=== PATIENT | female | born 1965 | race Caucasian/White ===

== ENCOUNTER 2016-12-17 22:52 | Inpatient (IN) | payer OTHER ==
[~2016-12-17] VITALS: Ht 149.9 cm; Wt 57.0 kg
[2016-12-18] VITALS (8 sets, daily range): BP systolic 94–114; BP diastolic 53–64; PULSE 69–82; RESP 14–20; Ht 149.9 cm; Wt 57.0 kg
[2016-12-18] MEDS ORDERED: KETOROLAC 30 MG INJ IV STA (00:25)
[2016-12-18] MEDS ORDERED: LORAZEPAM 2 MG INJ IV ONE (00:30)
--- NOTE | 2016-12-18 00:33 | RADRPT ---
PROCEDURE: XR Chest. CLINICAL INDICATION: Chest pain. TECHNIQUE: Portable AP upright view of the chest was obtained. COMPARISON: None. FINDINGS: The cardiomediastinal silhouette is within normal limits. The lungs are clear. There is no evidenc e for pleural effusion, pneumothorax or pulmonary vascular congestion. The osseous structures are i ntact with no evidence for acute abnormality. RPTAT:HJJR IMPRESSION: No evidence for acute intrathoracic pathology. Physician Murali Date Time Electronically viewed and signed by Physician Murali on 12/18/2016 00:33 JR/
[2016-12-18 00:35] LABS: CHLORIDE 108 mmol/L (97-110); INR 0.88; POTASSIUM 4.9 mmol/L (3.5-5.1); PROTIME 11.9 Sec (12.2-14.2); PT RATIO 0.9; SODIUM 144 mmol/L (135-144)
[2016-12-18 00:36] LABS: PARTIAL THROMBOPLASTIN TIME 28.1 Sec (25.0-35.0)
[2016-12-18 00:37] LABS: ALBUMIN/GLOBULIN RATIO 1.29; ANION GAP 16 (8-16); ASPARTATE AMINO TRANSFERASE 20 IU/L (15-46); CARBON DIOXIDE 25 mmol/L (21-31); CREATININE 0.94 mg/dl (0.44-1.00); TOTAL PROTEIN 7.1 g/dl (6.1-8.1)
[2016-12-18 00:38] LABS: ALANINE AMINOTRANSFERASE 21 IU/L (13-69); ALKALINE PHOSPHATASE 98 IU/L (42-121); BLOOD UREA NITROGEN 14 mg/dl (7-20); CALCIUM 9.4 mg/dl (8.4-10.2); GLUCOSE 94 mg/dl (70-220)
[2016-12-18 00:45] LABS: B-TYPE NATRIURETIC PEPTIDE 26 PG/ML (0-125)
[2016-12-18 01:22] LABS: TROPONIN-I < 0.012 ng/ml (0.00-0.12)
[2016-12-18] MEDS ORDERED: morphine 4 MG/ML VIAL IV STA ×2 (01:24→04:00)
[2016-12-18] MEDS ORDERED: DIPHENHYDRAMINE 50 MG INJ ONE (01:36)
[2016-12-18 01:41] LABS: HEMATOCRIT 39.6 % (37.0-47.0); HEMOGLOBIN 13.1 g/dl (12.0-16.0); MEAN CORPUSCULAR VOLUME 89.8 fl (82.0-101.0); RED BLOOD COUNT 4.41 10^6/ul (4.20-5.40); WHITE BLOOD COUNT 8.3 10^3/ul (4.8-10.8)
[2016-12-18 01:42] LABS: BASOPHILS % 0.6 % (0.0-2.0); EOSINOPHILS % 4.1 % (0.0-7.0); LYMPHOCYTES % 43.7 % (15.0-51.0); MEAN CORPUSCULAR HEMOGLOBIN 29.7 pg (29.0-33.0); MEAN CORPUSCULAR HGB CONC 33.1 g/dl (32.0-37.0); MEAN PLATELET VOLUME 10.8 fl (7.4-10.4); NEUTROPHILS % 41.2 % (39.0-77.0); PLATELET COUNT 510 10^3/UL (140-440); RED CELL DISTRIBUTION WIDTH 15.6 % (11.5-14.5)
[2016-12-18 01:43] LABS: BASOPHIL # 0.1 10^3/ul (0.0-0.1); EOSINOPHILS # 0.3 10^3/ul (0.0-0.5); LYMPHOCYTES # 3.6 10^3/ul (0.8-2.9); MONOCYTE # 0.8 10^3/ul (0.3-0.9); NEUTROPHIL # 3.4 10^3/ul (1.6-7.5)
[2016-12-18] MEDS ORDERED: DIPHENHYDRAMINE 50 MG INJ IV ONE ×2 (02:00→04:30)
[2016-12-18] MEDS ORDERED: ONDANSETRON 4 MG INJ IV STA (04:00)
--- NOTE | 2016-12-18 05:02 | ERA ---
ER Documentation Chief Complaint Date/Time DATE: 12/18/16 TIME: 05:01 Chief Complaint Pt reports CP x 5 days after father passing HPI This is a 51-year-old female who says she has been for the past 5 days. She said it was triggered by her father's passing intermittently emotional. Patient said she took benzodiazepines at home with no relief. She points of substernal chest pain, nonradiating nonexertional positional no exacerbating or remitting factors. No nausea no vomiting fevers or chills. No other current complaints. ROS All systems reviewed and are negative except as per history of present illness. Allergies Allergies: Coded Allergies: Penicillins (Verified Allergy, Unknown, 12/18/16) ketorolac (Verified Allergy, Unknown, 12/18/16) PMhx/Soc Hx Alcohol Use: Yes Hx Substance Use: No Hx Tobacco Use: Yes Smoking Status: Former smoker Physical Exam Vitals Vital Signs Date Time Temp Pulse Resp B/P Pulse Ox O2 Delivery O2 Flow Rate FiO2 12/18/16 04:00 83 19 102/72 95 Room Air 12/18/16 01:30 85 16 106/76 97 Room Air 12/17/16 23:05 98.1 99 18 140/70 100 Physical Exam Const: [] Head: Atraumatic Eyes: Normal Conjunctiva ENT: Normal External Ears, Nose and Mouth. Neck: Full range of motion..~ No meningismus. Resp: Clear to auscultation bilaterally Cardio: Regular rate and rhythm, no murmurs Abd: Soft, non tender, non distended. Normal bowel sounds Skin: No petechiae or rashes Back: No midline or flank tenderness Ext: No cyanosis, or edema Neur: Awake and alert Psych: Normal Mood and Affect Result Diagram: 12/17/16612/17/166 Results 24 hrs Laboratory Tests Test 12/17/16 00:07 Activated Partial Thromboplast Time 28.1Sec Alanine Aminotransferase (ALT/SGPT) 21IU/L Albumin 4.0g/dl Albumin/Globulin Ratio 1.29 Alkaline Phosphatase 98IU/L Anion Gap 16 Aspartate Amino Transf (AST/SGOT) 20IU/L B-Type Natriuretic Peptide 26PG/ML Basophils # 0.110^3/ul Basophils % 0.6% Blood Urea Nitrogen 14mg/dl Calcium Level 9.4mg/dl Carbon Dioxide Level 25mmol/L Chloride Level 108mmol/L Creatinine 0.94mg/dl Direct Bilirubin 0.00mg/dl Eosinophils # 0.310^3/ul Eosinophils % 4.1% Globulin 3.10g/dl Glucose Level 94mg/dl Hematocrit 39.6% Hemoglobin 13.1g/dl INR International Normalized Ratio 0.88 Indirect Bilirubin 0.0mg/dl Lymphocytes # 3.610^3/ul Lymphocytes % 43.7% Mean Corpuscular Hemoglobin 29.7pg Mean Corpuscular Hemoglobin Concent 33.1g/dl Mean Corpuscular Volume 89.8fl Mean Platelet Volume 10.8fl Monocytes # 0.810^3/ul Monocytes % 10.0% Neutrophils # 3.410^3/ul Neutrophils % 41.2% Nucleated Red Blood Cells # 0.010^3/ul Nucleated Red Blood Cells % 0.0/100WBC Platelet Count 13077^3/UL Potassium Level 4.9mmol/L Prothrombin Time 11.9Sec Prothrombin Time Ratio 0.9 Red Blood Count 4.4110^6/ul Red Cell Distribution Width 15.6% Sodium Level 144mmol/L Total Bilirubin 0.0mg/dl Total Protein 7.1g/dl Troponin I < 0.012ng/ml White Blood Count 8.310^3/ul Current Medications Medications (Trade) Dose Ordered Sig/Chanell Route PRN Reason Start Time Stop Time Status Last Admin Dose Admin Lorazepam (Ativan) 1 mg ONCE ONCE IV 12/18/16 00:30 12/18/16 00:31 DC 12/18/16 00:16 Ketorolac Tromethamine (Toradol) 30 mg ONCE STAT IV 12/18/16 00:25 12/18/16 00:26 DC Morphine Sulfate (morphine) 4 mg ONCE STAT IV 12/18/16 01:24 12/18/16 01:25 DC 12/18/16 01:28 Diphenhydramine HCl (Benadryl) 50 mg STK-MED ONCE .ROUTE 12/18/16 01:36 12/18/16 01:37 DC Diphenhydramine HCl (Benadryl) 50 mg ONCE ONCE IV 12/18/16 02:00 12/18/16 02:01 DC 12/18/16 02:00 Morphine Sulfate (morphine) 4 mg ONCE STAT IV 12/18/16 04:00 12/18/16 04:02 DC 12/18/16 04:04 Ondansetron HCl (Zofran Inj) 4 mg ONCE STAT IV 12/18/16 04:00 12/18/16 04:02 DC 12/18/16 04:04 Diphenhydramine HCl (Benadryl) 50 mg ONCE ONCE IV 12/18/16 04:30 12/18/16 04:31 DC 12/18/16 04:13 Procedures/MDM EKG: Rate/Rhythm: Normal Sinus Rhythm QRS, ST, T-waves: No changes consistent w/ acute ischemia Impression: No evidence of ischemia or arrhythmia Chest X-ray 1V Interpreted by me: Soft Tissue: No acute abnormalities Bones: No acute abnormalities Mediastinum/Cardiac Silhouette/Lungs: No acute abnormalities Patient's symptoms are concerning for cardiac cause will require inpatient workup and continuous monitoring. Further w/u for ischemia, arrhythmia, PE or dissection will be deferred to the inpatient team. Accepting Care Team: Current data and ongoing care discussed. Time: 3 AM Primary Provider: Hospitalist Consulting: [XOXOXO] Outstanding Data: none Departure Diagnosis: Primary Impression: Chest pain Qualified Code: R07.9 - Chest pain, unspecified type Condition: Serious LISA LEIVA Dec 18, 2016 05:02
[2016-12-18] MEDS ORDERED: ACETAMINOPHEN 325 MG TAB PO PRN (08:00)
[2016-12-18] MEDS ORDERED: ALBUTEROL/IPRATROPIUM (NEB) 3 ML AMP HHN PRN (08:00)
[2016-12-18] MEDS ORDERED: NACL 0.9% 3 ML SYG IV SCH (08:00)
[2016-12-18] MEDS ORDERED: NITROGLYCERIN (SL) 0.4 MG TAB SL PRN (08:00)
[2016-12-18 09:44] LABS: BASOPHIL # 0.2 10^3/ul (0.0-0.1); BASOPHILS % 2.4 % (0.0-2.0); EOSINOPHILS # 0.3 10^3/ul (0.0-0.5); EOSINOPHILS % 4.5 % (0.0-7.0); HEMATOCRIT 38.4 % (37.0-47.0); HEMOGLOBIN 12.7 g/dl (12.0-16.0); LYMPHOCYTES # 3.8 10^3/ul (0.8-2.9); LYMPHOCYTES % 50.7 % (15.0-51.0); MEAN CORPUSCULAR HEMOGLOBIN 29.8 pg (29.0-33.0); MEAN CORPUSCULAR HGB CONC 33.2 g/dl (32.0-37.0); MEAN CORPUSCULAR VOLUME 89.8 fl (82.0-101.0); MEAN PLATELET VOLUME 9.2 fl (7.4-10.4); MONOCYTE # 0.7 10^3/ul (0.3-0.9); MONOCYTES % 9.3 % (0.0-11.0); NEUTROPHIL # 2.5 10^3/ul (1.6-7.5); NEUTROPHILS % 33.1 % (39.0-77.0); PLATELET COUNT 441 10^3/UL (140-440); RED BLOOD COUNT 4.27 10^6/ul (4.20-5.40); RED CELL DISTRIBUTION WIDTH 15.9 % (11.5-14.5); UNCORRECTED WBC 7.4 10^3/ul (4.8-10.8); WHITE BLOOD COUNT 7.4 10^3/ul (4.8-10.8)
[2016-12-18 09:52] LABS: CONDITION 1; LH ANALYZER COMMENTS 1
[2016-12-18] MEDS: ASPIRIN 81 MG TAB PO SCH (09:53)
[2016-12-18 09:55] LABS: ALBUMIN 3.7 g/dl (3.3-4.9)
[2016-12-18 09:56] LABS: POTASSIUM 4.9 mmol/L (3.5-5.1)
[2016-12-18 09:58] LABS: ALBUMIN/GLOBULIN RATIO 1.15; BILIRUBIN,INDIRECT 0.2 mg/dl (0-1.1); BILIRUBIN,TOTAL 0.2 mg/dl (0.2-1.3); CREATININE 0.75 mg/dl (0.44-1.00); TOTAL PROTEIN 6.9 g/dl (6.1-8.1)
[2016-12-18 09:59] LABS: CALCIUM 9.3 mg/dl (8.4-10.2); MAGNESIUM 1.9 mg/dl (1.7-2.5)
[2016-12-18] MEDS: ENOXAPARIN 40 MG/0.4 ML SYG SC SCH (10:03)
[2016-12-18] MEDS: morphine 2 MG INJ IV PRN ×3 (10:07→23:33)
[2016-12-18] MEDS: DIPHENHYDRAMINE 50 MG INJ IV PRN ×3 (10:16→23:33)
[2016-12-18 10:29] LABS: THYROID STIMULATING HORMONE 2.37 MIU/L (0.465-4.680)
[2016-12-18] MEDS: LORAZEPAM 2 MG INJ IV PRN ×2 (13:25→19:37)
--- NOTE | 2016-12-18 15:13 | RADRPT ---
Echocardiogram Report Patient Name: BRIAN FERRO Gender: Female Date: 1965 Study Date: 18-Dec-2016 [employer] Superintendent: [facility] Location: 5552 Ref. Physician: LISA CARDENAS Quality: Adequate Procedures: Transthoracic echocardiogram with complete 2D, M-Mode, and doppler examination. Indications: Chest Pain. 2D/M Mode Doppler Measurement Value Normal Ranges Measurement Value Normal Ranges LVIDd 2D 3.8 3.5 - 5.6 cm AV Mean [place] 1.0 m/sec LVIDs 2D 2.8 2.1 - 4.1 cm AV Mean PG 4.8 mmHg LVPWd 2D 1.3 0.6 - 1.1 cm AV Peak [place] 1.5 m/sec IVSd 2D 1.3 0.6 - 1.1 cm AV Peak PG 9.3 mmHg AoR Diam 2D 2.0 2.0 - 3.7 cm AV VTI 32.9 cm EF 2D 52.0 50.0 - 65.0 % LVOT Peak [place] 1.1 m/sec LA Dimen 2D 3.8 2.3 - 4.0 cm MV E Peak [place] 0.9 m/sec IVC Diam 1.7 1.2 - 2.0 MV A Peak [place] 0.5 m/sec MV E/A 1.6 MV Decel Time 247 msec MV Decel [place] 3 MV E/A 1.6 Findings Left Ventricle: Normal left ventricular systolic function. Normal left ventricular cavity size. Mild concentric left ventricular hypertrophy. Ejection fraction is visually estimated at 65 %. Abnormal Diastolic Function. Right Ventricle: Normal right ventricular size. Normal right ventricular systolic function. Left Atrium: The left atrium is normal in size. Right Atrium: The right atrium is normal in size. Mitral Valve: Mild mitral annular calcification. Trace mitral regurgitation. Aortic Valve: Probable trileaflet aortic valve, although not all leaflets are visualized. Tricuspid Valve: Tricuspid valve not well visualized. There is trace tricuspid regurgitation. Pericardium: There is an anterior echo free space consistent with epicardial fat pad. Aorta: Normal aortic root. IVC: Dilated inferior vena cava with poor inspiratory collapse consistent with elevated right atrial pressures. Conclusions 1.Normal left ventricular systolic function. Normal left ventricular cavity size. Mild concentric left ventricular hypertrophy. Ejection fraction is visually estimated at 65 %. Abnormal Diastolic Function. 2.The left atrium is normal in size. 3.Probable trileaflet aortic valve, although not all leaflets are visualized. 4.Tricuspid valve not well visualized. There is trace tricuspid regurgitation. Electronically Signed By: Barak Sage 18-Dec-2016 15:13:18 -0800 Patient Name: BRIAN FERRO Study Date: 18-Dec-2016 [id number]
[2016-12-18 16:29] LABS: CREATINE KINASE 51 IU/L (23-200)
[2016-12-18 16:40] LABS: CK-MB < 0.22 ng/ml (0.0-2.4)
[2016-12-18 16:49] LABS: TROPONIN-I < 0.012 ng/ml (0.00-0.12)
--- NOTE | 2016-12-18 17:49 | QN ---
Documentation Comment The patient was seen and examined. Labs reviewed. Explained the plan of care to the patient. Called cardiology consult. Case discussed with Dr. Rowell. VICTOR M OWENS NP Dec 18, 2016 17:49
[2016-12-18 17:51] LABS: CREATINE KINASE 49 IU/L (23-200)
[2016-12-18 18:07] LABS: TROPONIN-I < 0.012 ng/ml (0.00-0.12)
[2016-12-18 18:09] LABS: CK-MB < 0.22 ng/ml (0.0-2.4)
--- NOTE | 2016-12-18 18:25 | CONS ---
DATE OF ADMISSION: 12/18/2016 DATE OF CONSULTATION: 12/18/2016 TYPE OF CONSULTATION: Cardiology. REASON FOR CONSULTATION: Chest pain. CHIEF COMPLAINT: Chest pain. HISTORY OF PRESENT ILLNESS: History obtain from the patient's chart, discussion with physician and staff. This is a pleasant 51-year-old female with history of anxiety who apparently has lost her fa ther 4 days ago. The patient's father had been sick. She states that she has constant chest pain a nteriorly. Could not explain exacerbating factor to me. It is not exertional, but she does not wal k and is not very active. PAST MEDICAL HISTORY: History of sciatica. ALLERGIES: REPORTED TO PENICILLIN AND KETOROLAC. SOCIAL HISTORY: The patient smokes 1 to 2 cigarettes a day. FAMILY HISTORY: Patient's father had coronary bypass graft in his 60s. REVIEW OF SYSTEMS: Otherwise negative except for above-mentioned. PHYSICAL EXAMINATION: VITAL SIGNS: Temperature 98, heart rate of 69, blood pressure 102/67, respiration rate of 20, satur ating 98%. HEENT: Normocephalic, atraumatic. Pupils are equal. CARDIOVASCULAR: Regular rate and rhythm. PULMONARY: With no wheezes or rhonchi. GASTROINTESTINAL: Soft, nontender. EXTREMITIES: No edema. NEUROLOGIC: Awake and alert. PSYCHIATRIC: Calm, pleasant. LABORATORY: Sodium 141, potassium 4.9, BUN of 13, creatinine 0.75. Troponin has been negative x2. Echocardiogram was personally reviewed, which shows ejection fraction of about 65%. EKG showed nor mal sinus rhythm with no evidence of ischemia. ASSESSMENT AND PLAN 1. Chest pain syndrome, rule acute coronary syndrome. 2. Anxiety. 3. History of sciatica. 4. Family history of coronary artery disease. RECOMMENDATIONS: Continue with the aspirin for now. Cardiac enzymes have been negative. Lexiscan w ill be done tomorrow to rule out obstructive coronary artery disease. Dictated By: HERNÁN COLLAZO MD AV/KENRICK Conf#: [id number] DID#: [id number] CC: LISA CARDENAS MD;*EndCC*
--- NOTE | 2016-12-18 19:40 | HP ---
DATE OF ADMISSION: 12/18/2016 TIME SEEN: 6 a.m. CHIEF COMPLAINT: Chest pain. HISTORY OF PRESENT ILLNESS: The patient is a 51-year-old female with a history of anxiety and sciat ica who presented to the emergency department. Patient had a chief complaint of chest pain. She st ated her chest pain has been going on for about a week. She does have a history of anxiety and her ____ recently and she said she has been under a lot of emotional distress because of marily t. Her chest pain is located in the mid chest area and ____ with no radiation to her arm, face and back. She reports occasional associated difficulty breathing. Denies nausea, vomiting or ____. Wh en she presented to the ER, her vitals were stable. EKG ____. ____ negative. Chest x-ray with no ac tive disease. REVIEW OF SYSTEMS: A 12-point review of system was performed and is negative except as mentioned in HPI. PAST MEDICAL HISTORY: As per HPI. PAST SURGICAL HISTORY: Denies. ALLERGIES: NO KNOWN DRUG ALLERGIES. HOME MEDICATIONS: Xanax. PHYSICAL EXAMINATION: VITAL SIGNS: Stable. GENERAL: No acute distress, alert and oriented. HEENT: No obvious head deformity. Pupils are reactive to light. Extraocular muscles intact. CARDIOVASCULAR: Regular rate and rhythm. ABDOMEN: Soft, nontender. Positive bowel sounds. EXTREMITIES: No edema. NEUROLOGICAL: No focal deficit. LABORATORY: ____ within normal limits. First troponin negative. IMAGING: Chest x-ray with no acute intrathoracic disease. IMPRESSION: 1. Chest pain, likely stress-induced, but we will rule out ACS. 2. History of anxiety. PLAN: Admit to telemetry unit. She will be placed on oxygen and ____. We will check A1c, fasting lipids, and TSH in the morning. We will also order a 2D echo. We will place a cardiology consult i f needed based on clinical course. We will provide pain, anxiety medication as needed. Further workup and management based on clinical course. Dictated By: LISA WADSWORTH/KENRICK Conf#: [id number] DID#: [id number]
[2016-12-18] MEDS: NYSTATIN 30 GM POWDER BTL TOP SCH (21:42)
[2016-12-19] VITALS (10 sets, daily range): BP systolic 102–120; BP diastolic 55–74; PULSE 67–91; RESP 16–20
[2016-12-19] MEDS: DOCUSATE SODIUM 100 MG CAP PO PRN ×3 (01:17→21:18)
[2016-12-19] MEDS: ONDANSETRON 4 MG INJ IV PRN ×3 (01:18→17:22)
[2016-12-19] MEDS: LORAZEPAM 2 MG INJ IV PRN ×3 (01:44→17:11)
[2016-12-19] MEDS: morphine 2 MG INJ IV PRN ×3 (03:29→13:22)
[2016-12-19] MEDS: DIPHENHYDRAMINE 50 MG INJ IV PRN ×3 (03:30→13:22)
[2016-12-19 07:15] LABS: CHOL/HDL RATIO 4.8 RATIO
[2016-12-19 07:16] LABS: POTASSIUM 4.1 mmol/L (3.5-5.1)
[2016-12-19 07:18] LABS: CREATININE 0.7 mg/dl (0.44-1.00)
[2016-12-19 07:19] LABS: CALCIUM 8.4 mg/dl (8.4-10.2); MAGNESIUM 1.8 mg/dl (1.7-2.5); PHOSPHORUS 3.7 mg/dl (2.5-4.9)
[2016-12-19 07:31] LABS: BASOPHILS % 0.4 % (0.0-2.0); EOSINOPHILS # 0.3 10^3/ul (0.0-0.5); HEMATOCRIT 35.9 % (37.0-47.0); HEMOGLOBIN 12.1 g/dl (12.0-16.0); LYMPHOCYTES # 3.2 10^3/ul (0.8-2.9); LYMPHOCYTES % 51.3 % (15.0-51.0); MEAN CORPUSCULAR HEMOGLOBIN 30.3 pg (29.0-33.0); MEAN CORPUSCULAR HGB CONC 33.8 g/dl (32.0-37.0); MEAN CORPUSCULAR VOLUME 89.6 fl (82.0-101.0); MEAN PLATELET VOLUME 9.2 fl (7.4-10.4); MONOCYTE # 0.6 10^3/ul (0.3-0.9); MONOCYTES % 9.8 % (0.0-11.0); NEUTROPHIL # 2.1 10^3/ul (1.6-7.5); NEUTROPHILS % 33.5 % (39.0-77.0); PLATELET COUNT 460 10^3/UL (140-440); RED BLOOD COUNT 4.01 10^6/ul (4.20-5.40); RED CELL DISTRIBUTION WIDTH 15.8 % (11.5-14.5); UNCORRECTED WBC 6.3 10^3/ul (4.8-10.8); WHITE BLOOD COUNT 6.3 10^3/ul (4.8-10.8)
[2016-12-19 07:46] LABS: THYROID STIMULATING HORMONE 1.11 MIU/L (0.465-4.680)
[2016-12-19 07:47] LABS: CONDITION 1; LH ANALYZER COMMENTS 1
[2016-12-19] MEDS: ASPIRIN 81 MG TAB PO SCH (08:15)
[2016-12-19] MEDS: NYSTATIN 30 GM POWDER BTL TOP SCH ×2 (08:18→21:18)
[2016-12-19] MEDS: ENOXAPARIN 40 MG/0.4 ML SYG SC SCH (08:18)
[2016-12-19] MEDS ORDERED: REGADENOSON 0.4 MG/5 ML SYG ONE (09:20)
[2016-12-19] MEDS ORDERED: MAGNESIUM HYDROXIDE 30ML CUP PO PRN (11:30)
--- NOTE | 2016-12-19 12:01 | PN ---
DATE: 12/19/2016 DIAGNOSTIC DATA: Lexiscan stress test DESCRIPTION: Lexiscan was performed as per protocol. FINDINGS: Baseline EKG showed normal sinus rhythm, normal ECG. Heart rate at baseline 66, blood pressure 108/ 74, heart rate at peak stress is 96, blood pressure of 110/65. No significant ischemic ST changes seen. No significant arrhythmia seen. CONCLUSION: Completion of Lexiscan at stress as per protocol. See nuclear medicine result for priya l report. Dictated By: HERNÁN COLLAZO MD AV/KENRICK Conf#: [id number] DID#: [id number]
--- NOTE | 2016-12-19 12:09 | PN ---
DATE: 12/19/2016 CARDIOLOGY FOLLOWUP SUBJECTIVE: The patient still complains of intermittent chest pain overnight and appears to be anxi ous again. The patient has had palpitations reported on the monitor. No significant arrhythmia was reported to me. MEDICATIONS: Reviewed. PHYSICAL EXAMINATION: VITAL SIGNS: Temperature 98, heart rate of 80, blood pressure 105/55, respiratory rate 20, saturati ng 98%. HEENT: Normocephalic, atraumatic. Pupils are equal. The patient appears to be anxious. CARDIOVASCULAR: Regular rate and rhythm. PULMONARY: No wheezes, rales or rhonchi. GASTROINTESTINAL: Soft, nontender. EXTREMITIES: No significant edema. NEUROLOGIC: Awake and alert. PSYCHIATRIC: Appears to be anxious, but very pleasant. LABORATORY: WBC of 6.3, hemoglobin 12.1, platelets of 460. Sodium 139, potassium 4.1, BUN of 10, c reatinine 0.7, glucose of 89. Cholesterol is 165, LDL 118, HDL of 34. TSH 1.1. ASSESSMENT AND PLAN 1. Chest pain syndrome, rule acute coronary syndrome. 2. Anxiety. 3. Sciatica. 4. Dyslipidemia. 5. Strong family history of coronary artery disease per her report. RECOMMENDATIONS: Lexiscan will be done to rule out significant obstructive coronary artery disease. Continue with the rest of her cardiac care. Anxiety treatment as per internal medicine. Dictated By: HERNÁN COLLAZO MD AV/KENRICK Conf#: [id number] DID#: [id number] CC: LISA CARDENAS MD; VICTOR M OWENS [employer]SEM[employer];*[facility]*
--- NOTE | 2016-12-19 12:38 | RADRPT ---
PROCEDURE: Nuclear medicine myocardial perfusion scan CLINICAL INDICATION: Chest pain TECHNIQUE: 27.8 mCi of technetium 99m Cardiolite was administered for the stress study. 10.4 mCi of technetium 99m Cardiolite was administered for the resting study. The patient was stressed with 0 .4 mg of Lexiscan. Images were reviewed in the short axis, vertical long axis, and horizontal long axis views. Wall motion was assessed and ejection fraction was calculated as well. Images were revi ewed on a high-resolution PACS workstation. COMPARISON: None available FINDINGS: Left ventricular size is within normal limits. There is moderate soft tissue and bowel attenuation artifact. The stress tomographic images demonstrate a normal pattern of perfusion. Apical thinning is identified. The resting tomographic images demonstrate a similar pattern. There is no evidence f or reversible ischemia. Wall motion is normal. The ejection fraction is calculated at 68%. IMPRESSION: 1. Negative myocardial perfusion scan. 2. There is no evidence for reversible ischemia. 3. Normal wall motion with normal ejection fraction of 68%. RPTAT: HMJB .Seth To MD, Date Time Electronically viewed and signed by .Seth To MD, MD on 12/19/2016 12:38 .B/
--- NOTE | 2016-12-19 15:20 | PDOCDIS ---
Discharge Instructions DIAGNOSIS Discharge Diagnosis: Atypical chest pain. Anxiety. CONDITION Patient Condition: Stable HOME CARE INSTRUCTIONS: Diet Instructions: Low Fat /Cholesterol FOLLOW UP/APPOINTMENTS Appointments Destin Martinez MD Specialty: Internal Medicine Office Address: [address] [place], [place] [id number] Office OTHER ORDERS: Other Orders: 1. Regular , preferably low cholesterol diet as tolerated. 2. Take pain medications as needed. 3. Follow up with your primary care physician in 2 weeks. If you do not have a primary care physician, please call Dr. Destin Martinez's office. 4. Resume activities as tolerated. VICTOR M OWENS NP Dec 19, 2016 15:20
[2016-12-19] MEDS ORDERED: HYDR-906 PO (15:21)
[2016-12-19] MEDS ORDERED: NYST15PO4 TOP (15:21)
[2016-12-19] MEDS: NA PHOSPHATE/BIPHOS 133 ML ENEMA PR ONE (15:30)
[2016-12-19] MEDS ORDERED: morphine 2 MG INJ IV ONE (15:30)
[2016-12-19] MEDS ORDERED: DIPHENHYDRAMINE 50 MG INJ IV ONE (15:37)
--- NOTE | 2016-12-19 17:37 | DS ---
DATE OF ADMISSION: 12/18/2016 DATE OF DISCHARGE: 12/19/2016 FINAL DIAGNOSES: 1. Atypical chest pain. Acute coronary syndrome ruled out. 2. Anxiety disorder. 3. Dyslipidemia with low HDL. 4. Candidiasis in bilateral groin. CONSULTATIONS: Dr. Barak Sage, Cardiology. HOSPITAL COURSE: This is a 51-year-old female with past medical history of anxiety who came to the emergency room with chief complaint of chest pain. The patient was having some family stressors that precipitated the chest pain. The patient verbalized the chest pain as substernal in origin. The patient denied any associated nausea, vomiting or diaphoresis. The patient also verbalized a family history of coronary artery disease. Provided the patient's history of present illness and her comorbidities, a clinical decision was made to admit the patient to inpatient setting to have her further evaluated. The patient was admitted to inpatient telemetry floor. Serial troponins were ordered. A 2-D echocardiogram was ordered. A cardiology consult was called. The patient's serial troponins remained negative. The patient's 2D echocardiogram showed preserved left ventricular ejection fraction with abnormal diastolic function. The patient underwent a nuclear medicine cardiac stress test on 12/19/2016 that was negative for any myocardial perfusion defects. The patient's ejection fraction was 68% at stress. Hence, it was concluded that the patient's chest pain is noncardiac in origin. The patient was ruled out for any underlying acute coronary syndrome. The patient has underlying anxiety. The patient was maintained on anxiolytics for the same. The patient had some dyslipidemia with low HDL and suboptimal LDL. The patient was advised on a low cholesterol diet. All the other patient 's labs were nonsignificant. The patient also had bilateral groin candidiasis that was treated with local antifungals with improvement in the symptoms. The patient had a stable hospital course. The patient was cleared by consultants to be discharged home. The patient verbalized adequate pain control at the time of discharge. DISCHARGE DISPOSITION/PLAN: The patient will be discharged home today. The patient was instructed to take a low-cholesterol diet as tolerated. The patient was instructed to take pain medications as needed. The patient was instructed to follow up with her primary care physician in 2 weeks. The patient was instructed to resume activities as tolerated. The patient verbalized understanding of her discharge instructions. CONDITION AT DISCHARGE: Stable. DISCHARGE MEDICATIONS: 1. Wayne 5/325 one tablet p.o. q.6h. p.r.n. pain. 2. Nystatin topical 1 application b.i.d. to bilateral groins. PERTINENT LABORATORY AND DIAGNOSTIC DATA: 1. 2D echocardiogram. Ejection fraction of 65%. Abnormal diastolic function. Trace tricuspid regurgitation. 2. Cardiac stress test. Negative myocardial perfusion scan. There was no evidence for reversible ischemia. Normal wall motion with normal ejection fraction of 68%. 2. Chest x-ray. No evidence of acute intrathoracic pathology. 3. Latest CBC: WBC 6.3, hemoglobin 12.1, hematocrit 35.9, platelet count 460. 4. Latest BMP: Sodium 139, potassium 4.1, chloride 107, carbon dioxide 20, anion gap 14, BUN 10, creatinine 0.70, glucose 89, calcium 8.4, phosphorus 3.7, magnesium 1.8. 5. Hemoglobin A1c 5.5. 5. Fasting lipid panel: Triglycerides 65, total cholesterol 165, LDL 118, HDL 34. 5. Thyroid panel: TSH 1.110, free T4 of 0.87. At this time, I would like to thank Dr. Sage for seeing the patient and providing clinical recommendations. The case and management of this patient was fully discussed with Dr. Tillman. Approximately 35 minutes was spent on coordinating the discharge on this patient. VICTOR M TILLMAN MD, AM/KENRICK Conf#: [id number] DID#: [id number] MTDD
[2016-12-19] MEDS: traMADol-APAP 37.5-325 1 TAB PO PRN (21:18)
--- NOTE | 2016-12-19 22:26 | PN ---
DATE: 12/19/2016 TIME OF EVALUATION: 1500. SUBJECTIVE DATA: Complains of chest pain. The patient is status post cardiac stress test today. OBJECTIVE DATA: VITAL SIGNS: Temperature 98.2, pulse rate 72, respiratory rate 16, blood pressure 102/59, oxygen saturation 92% on low flow O2. GENERAL: This is a well-built, well-nourished female patient lying in bed in no apparent distress. HEENT: Head normocephalic and atraumatic. Eyes: Anicteric sclerae. Conjunctivae clear. ENT: Nasal septum is midline. Oral mucosa is moist. NECK: Supple. No JVD noticed. RESPIRATORY: Bilaterally clear to auscultation. No adventitious breath sounds heard. No use of accessory muscles of respiration. CARDIAC: Regular rate and rhythm. No murmurs. ABDOMEN: Soft, nontender and nondistended. Bowel sounds positive in all 4 quadrants. GENITOURINARY: Deferred. EXTREMITIES: No cyanosis, no clubbing, no edema. Peripheral pulses palpable. NEUROLOGIC: The patient is awake, alert and oriented. Cranial nerves are grossly intact. LABORATORY AND DIAGNOSTIC DATA: WBC 6.3, hemoglobin 12.1, hematocrit 36.8, platelets of 460. Sodium 139, potassium 4.1, chloride 107, carbon dioxide 20, anion gap 14, BUN 10, creatinine 0.70, glucose 89, calcium 8.4, phosphorus 3.7, magnesium 1.8. ASSESSMENT AND PLAN: 1. Chest pain. To rule out acute coronary syndrome. Serial troponins negative so far. Status post cardiac stress test. Pending official results. 2. Anxiety disorder. Continue anxiolytics. 3. Dyslipidemia with low HDL. Will reinforce a low cholesterol diet. 4. Tg infection in bilateral groins. Continue local antifungal applications. 5. Fluid, electrolytes and nutrition. Continue low cholesterol diet. 6. Deep venous thrombosis prophylaxis. Continue ambulation. 7. Gastrointestinal prophylaxis. Not indicated. PLAN: Await cardiac stress test. If the cardiac stress test is negative, will discharge the patient home. The case was discussed with Dr. Tillman. VICTOR M TILLMAN MD, AM/KENRICK Conf#: [id number] DID#: [id number] [facility]
[2016-12-20] VITALS (12 sets, daily range): BP systolic 92–126; BP diastolic 47–68; PULSE 66–108; RESP 20
[2016-12-20] MEDS: ONDANSETRON 4 MG INJ IV PRN ×2 (02:22→09:57)
[2016-12-20] MEDS: LORAZEPAM 2 MG INJ IV PRN ×2 (02:22→09:57)
[2016-12-20] MEDS: traMADol-APAP 37.5-325 1 TAB PO PRN ×3 (06:32→20:21)
--- NOTE | 2016-12-20 08:55 | PN ---
DATE: 12/20/2016 CARDIOLOGY FOLLOWUP SUBJECTIVE: The patient is complaining of chest pain. She said she was able to walk around with no chest pain or pressure. Rhythm strip was reviewed. The patient has had episodes of Mobitz I AV bl ock followed by a 2:1 AV block, short episode, and patient apparently was sleeping and asymptomatic. MEDICATIONS: Reviewed. PHYSICAL EXAMINATION: VITAL SIGNS: Temperature 97.9, heart rate 78, blood pressure 106/68, respiratory rate of 20. HEENT: Normocephalic, atraumatic, no acute distress. Pupils are equal. CARDIOVASCULAR: Regular rate and rhythm. Systolic murmur. PULMONARY: With no wheezes, no rhonchi. GASTROINTESTINAL: Soft, nontender. EXTREMITIES: No edema. NEUROLOGIC: Awake and alert. PSYCHIATRIC: Anxious. LABORATORY: Nuclear stress test done yesterday showed negative perfusion scan with ejection fractio n of 68%. No evidence for reversible ischemia. ASSESSMENT AND PLAN: 1. Chest pain, appears to be atypical, most likely stress induced, anxiety related. 2. Anxiety. 3. History of sciatica. 4. Dyslipidemia. 5. History of coronary artery disease with no evidence of ischemia on the stress test. 6. Short episode of Mobitz I AV block which was asymptomatic. RECOMMENDATIONS: Recommend continued medical therapy. Discharge planning as per internal medicine. Will need outpatient followup. Dictated By: HERNÁN COLLAZO MD AV/NTS Conf#: [id number] DID#: [id number] CC: LISA CARDENAS MD;*EndCC*
[2016-12-20] MEDS: NYSTATIN 30 GM POWDER BTL TOP SCH (09:58)
[2016-12-20] MEDS: ASPIRIN 81 MG TAB PO SCH (09:58)
[2016-12-20] MEDS: ENOXAPARIN 40 MG/0.4 ML SYG SC SCH (10:12)
[2016-12-20 13:31] LABS: ADD UMIC YES; URINE BILIRUBIN (Dip) NEGATIVE (NEGATIVE); URINE BLOOD (Dip) 3+ (NEGATIVE); URINE COLOR LT. YELLOW (YELLOW); URINE GLUCOSE (Dip) NEGATIVE (NEGATIVE); URINE KETONES (Dip) NEGATIVE (NEGATIVE); URINE LEUKOCYTE ESTERASE (Dip) NEGATIVE (NEGATIVE); URINE NITRITE (Dip) NEGATIVE (NEGATIVE); URINE TOTAL PROTEIN (Dip) TRACE (NEGATIVE); URINE UROBILINOGEN (Dip) 0.2 E.U./dL (0.1-1.0)
[2016-12-20 13:57] LABS: BACTERIA,URINE FEW; SQUAMOUS EPITHELIAL CELL,UR MODERATE
[2016-12-20] MEDS ORDERED: LORA1TAB PO (14:25)
[2016-12-20] MEDS: NA PHOSPHATE/BIPHOS 133 ML ENEMA PR ONE (14:53)
[2016-12-20] MEDS ORDERED: NA PHOSPHATE/BIPHOS 133 ML ENEMA PR ONE (15:00)
[2016-12-20 15:47] LABS: BARBITURATES Negative (NEGATIVE); BENZODIAZEPINES POSITIVE (NEGATIVE); CANNABINOIDS Positive (NEGATIVE); COCAINE Negative (NEGATIVE); OPIATES Positive (NEGATIVE)
--- NOTE | 2016-12-20 16:10 | PN ---
Date/Time of Note Date/Time of Note DATE: 12/20/16 TIME: 16:10 Assessment/Plan VTE Prophylaxis VTE Prophylaxis Intervention: LMWH Lines/Catheters IV Catheter Type (from [facility]): [facility] Urinary Cath still in place: No Assessment/Plan Chief Complaint/Hosp Course 1. Chest pain. Acute coronary syndrome ruled out. Cardiac stress test negative. 2. Anxiety disorder. Continue anxiolytics. 3. Dyslipidemia with low HDL. Reinforced a low cholesterol diet. 4. Candidiasis in bilateral groins. Continue local antifungal applications. 5. Metrorrhagia. The patient is perimenopausal. Monitor. 6. Possible malingering. Avoid any strong pain medications. 7. Constipation. Lactulose enema ordered. 8. Marijuana abuse. Positive cannabinoids in urine although the patient denied any drug abuse 9. Fluids, electrolytes, and nutrition. Low-cholesterol diet. 10. DVT prophylaxis. Ambulation. Lovenox 11. Gastrointestinal prophylaxis. Not indicated. 12. Plan. Discharge the patient home after the patient gets the enema and she has a bowel movement. The plan of care was explained to the patient and also to the patient's spouse, who was at the bedside. The patient was informed about the discharge order and there is no medical necessity for the patient to stay in-house. Case discussed with Dr. Rowell. Problems: Subjective 24 Hr Interval Summary Free Text/Dictation Patient had discharge orders from 12/19/2016. However the patient remained in- house since the patient was complaining of chest pain and anxiety. The patient also started complaining of vaginal bleeding. Patient verbalized that her last menstrual period was on 12/15/2016. The patient also verbalized that she is constipated and has not had any bowel movements for a few days. Exam/Review of Systems Vital Signs Vitals Vital Signs Date Time Temp Pulse Resp B/P Pulse Ox O2 Delivery O2 Flow Rate FiO2 12/20/16 13:29 67 12/20/16 12:31 98.2 20 117/68 98 12/20/16 08:20 Nasal Cannula 2.0 Intake and Output 12/19/16 12/19/16 12/20/16 15:00 23:00 07:00 Intake Total 500 ml 360 ml Balance 500 ml 360 ml Exam GENERAL: This is a well-built, well-nourished female patient lying in bed in no apparent distress. HEENT: Head normocephalic and atraumatic. Eyes: Anicteric sclerae. Conjunctivae clear. ENT: Nasal septum is midline. Oral mucosa is moist. NECK: Supple. No JVD noticed. RESPIRATORY: Bilaterally clear to auscultation. No adventitious breath sounds heard. No use of accessory muscles of respiration. CARDIAC: Regular rate and rhythm. No murmurs. ABDOMEN: Soft, nontender and nondistended. Bowel sounds positive in all 4 quadrants. GENITOURINARY: Normal external female genitalia. Some blood with blood clots in the external os (examined in the presence of female RN). EXTREMITIES: No cyanosis, no clubbing, no edema. Peripheral pulses palpable. NEUROLOGIC: The patient is awake, alert and oriented. Cranial nerves are grossly intact. Results Result Diagram: 12/19/1660712/19/16 0608 Results 24 hrs Laboratory Tests Test 12/20/16 12:30 12/20/16 12:50 Urine Amphetamines Screen Negative Urine Barbiturates Negative Urine Benzodiazepines Screen POSITIVE Urine Cannabinoids Positive Urine Cocaine Screen Negative Urine Opiates Screen Positive Urine Test NEGATIVE Urine Bacteria FEW Urine Bilirubin NEGATIVE Urine Clarity CLEAR Urine Color LT. YELLOW Urine Glucose NEGATIVE Urine Hemoglobin 3+ H Urine Ketones NEGATIVE Urine Leukocyte Esterase NEGATIVE Urine Microscopic RBC 5-10 Urine Microscopic WBC 2-5 Urine Nitrite NEGATIVE Urine Specific [place] 1.010 Urine Squamous Epithelial Cells MODERATE Urine Total Protein TRACE Urine Urobilinogen 0.2 E.U./dL Urine pH 8.0 Medications Medications Current Medications Lorazepam (Ativan) 0.5 mg Q6H PRN IV ANXIETY Last administered on 12/20/16 09: 57; Admin Dose 0.5 MG; Start 12/18/16 at 08:00 Aspirin (Aspirin) 81 mg DAILY PO Last administered on 12/20/16 09:58; Admin Dose 81 MG; Start 12/18/16 at 09:00 Nitroglycerin (Nitroglycerin (Sl Tab) 0.4 Mg) 1 tab Q5M PRN SL CHEST PAIN Last administered on 12/19/16 01:45; Admin Dose 1 TAB; Start 12/18/16 at 08:00 Acetaminophen (Tylenol Tab) 650 mg Q6H PRN PO PAIN LEVEL 1-3 OR FEVER; Start at 08:00 Enoxaparin Sodium (Lovenox) 40 mg DAILY SC Last administered on 12/20/16 10:12 ; Admin Dose 40 MG; Start 12/18/16 at 09:00 Nystatin (Nystatin Powder) 1 applic BID TOP Last administered on 12/20/16 09: 58; Admin Dose 1 APPLIC; Start 12/18/16 at 21:00 Docusate Sodium (Colace) 100 mg BID PRN PO CONSTIPATION Last administered on 21:18; Admin Dose 100 MG; Start 12/18/16 at 19:30 Ondansetron HCl (Zofran Inj) 4 mg Q6H PRN IV NAUSEA AND/OR VOMITING Last administered on 12/20/16 09:57; Admin Dose 4 MG; Start 12/19/16 at 01:00 Magnesium Hydroxide (Milk Of Mag) 30 ml DAILY PRN PO CONSTIPATION Last administered on 12/19/16 13:22; Admin Dose 30 ML; Start 12/19/16 at 11:30 Tramadol HCl (Ultracet) 1 tab Q6H PRN PO pain Last administered on 12/20/16 09 :58; Admin Dose 1 TAB; Start 12/19/16 at 19:30 Lactulose (Lactulose Enema) 100 ml ONCE ONCE WI ; Start 12/20/16 at 17:00; Stop 12/20/16 at 17:01 VICTOR M OWENS NP Dec 20, 2016 16:10
[2016-12-20] MEDS ORDERED: LACTULOSE ENEMA 1,000 ML BTL PR ONE (17:00)
--- NOTE | 2016-12-21 07:44 | DS ---
DATE OF ADMISSION: 12/18/2016 DATE OF DISCHARGE: 12/20/2016 FINAL DIAGNOSES: 1. Atypical chest pain. 2. Anxiety disorder. 4. Dyslipidemia with low HDL. 5. Candidiasis in bilateral groin area. 6. Metrorrhagia. CONSULTATIONS: Dr. Hernán Sage, Cardiology. HOSPITAL COURSE: This is a 51-year-old female with past medical history of anxiety who came to the emergency room with chief complaint of chest pain. The patient was having some family stressors that precipitated the chest pain. The patient verbalized the chest pain as substernal in origin. The patient denied any associated nausea, vomiting or diaphoresis. The patient also verbalized a family history of coronary artery disease. Provided the patient's history of present illness and her comorbidities, a clinical decision was made to admit the patient to inpatient setting to have her further evaluated. The patient was admitted to inpatient telemetry floor. Serial troponins were ordered. A 2-D echocardiogram was ordered. A cardiology consult was called. The patient's serial troponins remained negative. The patient's 2D echocardiogram showed preserved left ventricular ejection fraction with abnormal diastolic function. The patient underwent a nuclear medicine cardiac stress test on 12/19/2016 that was negative for any myocardial perfusion defects. The patient's ejection fraction was 68% at stress. Hence, it was concluded that the patient's chest pain is noncardiac in origin. The patient was ruled out for any underlying acute coronary syndrome. The patient has underlying anxiety. The patient was maintained on anxiolytics for the same. The patient had some dyslipidemia with low HDL and suboptimal LDL. The patient was advised on a low cholesterol diet. All the other patient 's labs were nonsignificant. The patient also had bilateral groin candidiasis that was treated with local antifungals with improvement in the symptoms. The patient had a stable hospital course. The patient was cleared by consultants to be discharged home. The patient verbalized adequate pain control at the time of discharge. The patient had discharge orders on 12/19/2016. However, the patient refused to leave the hospital complaining of nonspecific things, including abdominal discomfort, vaginal bleeding, as well as chest pain. The patient was reevaluated by cardiology on 12/20/2016 and no further cardiac workup was indicated at this time. The patient most probably has underlying metrorrhagia secondary to being in the perimenopausal age versus from underlying stress. The patient's urinalysis did not show any evidence of a urinary tract infection , but it showed 3+ hemoglobinuria. The patient also got a single dose of enema since the patient was chronically constipated. Other than that, the patient's condition remained stable and the patient is stable to be discharged home. DISCHARGE DISPOSITION/PLAN: The patient will be discharged home today. The patient was instructed to take a low-cholesterol diet as tolerated. The patient was instructed to take pain medications as needed. The patient was instructed to follow up with her primary care physician in 2 weeks. The patient was instructed to resume activities as tolerated. The patient verbalized understanding of her discharge instructions. CONDITION AT DISCHARGE: Stable. DISCHARGE MEDICATIONS: 1. [place] 5/325 one tablet p.o. q.6h. p.r.n. pain. 2. Nystatin topical 1 application b.i.d. to bilateral groins. 3. Lorazepam 1 mg orally q.8h p.r.n. anxiety. PERTINENT LABORATORY AND DIAGNOSTIC DATA: 1. 2D echocardiogram. Ejection fraction of 65%. Abnormal diastolic function. Trace tricuspid regurgitation. 2. Cardiac stress test. Negative myocardial perfusion scan. There was no evidence for reversible ischemia. Normal wall motion with normal ejection fraction of 68%. 2. Chest x-ray. No evidence of acute intrathoracic pathology. 3. Latest CBC: WBC 6.3, hemoglobin 12.1, hematocrit 35.9, platelet count 460. 4. Latest BMP: Sodium 139, potassium 4.1, chloride 107, carbon dioxide 20, anion gap 14, BUN 10, creatinine 0.70, glucose 89, calcium 8.4, phosphorus 3.7, magnesium 1.8. 5. Hemoglobin A1c 5.5. 5. Fasting lipid panel: Triglycerides 65, total cholesterol 165, LDL 118, HDL 34. 5. Thyroid panel: TSH 1.110, free T4 of 0.87. At this time, I would like to thank Dr. Sage for seeing the patient and providing clinical recommendations. The case and management of this patient was fully discussed with Dr. Tillman. Approximately 35 minutes was spent on coordinating the discharge on this patient. VICTOR M TILLMAN MD AM/NTS Conf#: [id number] DID#: [id number] CC: HERNÁN SAGE MD;*EndCC* [facility]
== END 2016-12-20 21:20 | disposition home or self-care (01) | DRG 313 ==
LOC: E/R 22:52 → MS4 12-18 04:19
PROVIDERS: ADMIT Internal Medicine; ATTEND Internal Medicine
DX: R07.89 Other chest pain (principal); B37.89 Other sites of candidiasis; F41.9 Anxiety disorder, unspecified; M54.30 Sciatica, unspecified side; E78.5 Hyperlipidemia, unspecified; N92.4 Excessive bleeding in the premenopausal period; K59.00 Constipation, unspecified; F12.10 Cannabis abuse, uncomplicated; F17.210 Nicotine dependence, cigarettes, uncomplicated; Z88.0 Allergy status to penicillin; Z82.49 Family history of ischemic heart disease and other diseases of the circulatory system
CPT/HCPCS: 36415; 71010; 78452; 80048; 80053; 80061; 80307; 81001; 81003; 82550; 82553; 83036; 83735; 83880; 84100; 84439; 84443; 84484; 84703; 85025; 85610; 85730; 93005; 93017; 93306; 96374; 96375; 96376; A9500; A9505; J1200; J1650; J2060; J2270; J2405; J2785